=== PATIENT | female | born 1945 ===

== ENCOUNTER 2019-10-03 08:02 | Day surgery (SDC) | payer OTHER | END 2019-10-03 13:20 | disposition home or self-care (01) | LOC: AMB-ENDOS 08:02 → ADM 13:45 → AMB-ENDOS 13:45 | PROVIDERS: ATTEND Colon & Rectal Surgery | DX: K62.89 Other specified diseases of anus and rectum (principal); K64.1 Second degree hemorrhoids ==

== ENCOUNTER 2021-08-16 05:51 | Day surgery (SDC) | payer OTHER ==
[~2021-08-16 05:51] MED LIST: LIPITOR PO; METHOTREXATE PO; TREXALL7.5 MG PO
== END 2021-08-16 18:35 | disposition home or self-care (01) ==
LOC: CIR.AMB 05:51
PROVIDERS: ATTEND Colon & Rectal Surgery
DX: K64.2 Third degree hemorrhoids (principal); Z86.010 Personal history of colon polyps; Z80.0 Family history of malignant neoplasm of digestive organs; K92.1 Melena; Z88.2 Allergy status to sulfonamides; Z20.822 Contact with and (suspected) exposure to COVID-19; J45.909 Unspecified asthma, uncomplicated